=== PATIENT | male | born 1975 | race Caucasian/White ===

== ENCOUNTER 2022-04-27 13:29 | Emergency (ER) | payer OTHER, SELFPAY ==
[2022-04-27 13:52] VITALS: BP 121/73; PULSE 86; RESP 16; TEMP 36.4; O2SAT 97; BMI 29.8
--- NOTE | 2022-04-27 14:21 | ED_ITS ---
HPI - General Adult General Time Seen by Provider: 14:21 Date Seen: 04/27/22 Chief complaint: Flank Pain Stated complaint: Pain on left side Time Seen by Provider: 04/27/22 14:11 Source: patient and RN notes reviewed Mode of arrival: ambulatory Limitations: no limitations History of Present Illness HPI narrative: Patient is a 46-year-old male with left lateral sided abdominal pain that just started insidiously on the 8th. He can not say that there was anything that precipitated this. It has been there constantly, maybe worsening. He thinks that eating may make it worse. His appetite maybe decreased due to that. There has been no nausea or vomiting, no change in bowel habits, no diarrhea or constipation, no urinary symptoms. He certainly has not had any fever with it. He does state he has been diagnosed with Crohn's before. He believes he had a colonoscopy maybe in 2002. He has never had any kidney stones. Some movement and coughing will increase the pain. When he 1st noticed it it seemed to be more bandlike through his mid abdomen and has now localized in the left side. He does not believe he needs anything for pain at this time, is just interested in figuring this out. Tried Aleve once and it really did not change pain. Related Data Home Medications Medication Instructions Recorded Confirmed amlodipine 10 mg tablet 20 mg 04/27/22 lisinopril 10 mg tablet 10 mg 04/27/22 mesalamine 500 mg capsule,extended 500 mg PO BID 04/27/22 04/27/22 release (Pentasa) metformin 500 mg tablet,extended 2,000 mg PO 04/27/22 release 24 hr Allergies Allergy/AdvReac Type Severity Reaction Status Date / Time No Known Drug Allergies Allergy Verified 04/27/22 15:28 Review of Systems Status of ROS: Reports: 10 or more systems reviewed and unremarkable except as noted in History and below [facility] Medical History (Updated 04/27/22 @ 16:25 by Екатерина Dinero MD) Crohn's disease Diabetes mellitus Social History Smoking Status: Never smoker How often do you have a drink containing alcohol: never AUDIT-C Alcohol total score: 0 Non-prescribed substance use: denies use Exam Const: Vital Signs, click to edit/add: Vital Signs - 24 hr 04/27/22 13:52 Temperature 97.6 F Pulse Rate [Right Pulse Oximeter] 86 Respiratory Rate 16 Blood Pressure [Ri ght Upper Arm] 121/73 Pulse Oximetry 97 Oxygen Delivery Me thod Room Air Documenting provider has reviewed patient's vital signs: yes Common normals: no apparent distress, average body habitus, oriented x3, no limitations, healthy appearing and alert General appearance: cooperative, comfortable and well kempt Nutritional appearance: overweight HENMT: Common normals: normocephalic, head/scalp atraumatic, hearing grossly normal bilaterally, external ears normal, external nose normal, nasal mucous membranes and turbinates normal, moist oral mucous membranes, oropharynx normal, dentition normal and gingiva normal Head and scalp: normocephalic and atraumatic Nose: external nose normal and nasal mucous membranes and turbinates normal External ear: external ears normal Eye: Common normals: PERRL, EOMs intact bilaterally, conjunctivae normal and no scleral icterus Conjunctiva: conjunctiva(e) normal Pupil: PERRL Neck & C-Spine: Common normals: full ROM, no lymphadenopathy, supple, no meningeal signs, no JVD and thyroid normal Thyroid: thyroid normal Resp: Common normals: normal respiratory effort, no retractions, no use of accessory muscles and clear to auscultation bilaterally Auscultation: clear to auscultation bilaterally Cardio: Common normals: no JVD, regular rate, regular rhythm, S1 normal heart sound, S2 normal heart sound, no gallops, no clicks and no murmurs Rate: regular rate Rhythm: regular rhythm Heart sounds: S1 normal and S2 normal GI: Common normals: Normal to inspection, nondistended, normoactive bowel sounds present, soft to palpation (Mild tenderness mid left abdomen, left CVA, in the left lower quadrant ), no hepatosplenomegaly and no masses Palpation: soft (Mild tenderness mid left abdomen, left CVA, in the left lower quadrant ) and no hepatosplenomegaly Other: No true rebound or guarding noted. Neuro: Common normals: oriented x3 Sensorium/orientation: alert Meningeal signs: no meningeal signs Psych: Appearance: well kempt Course Course Hospital Course: Again, patient declines any pain management. We will place an IV and obtain abdomen pelvis CT with IV contrast. Will get appropriate lab work. Differential could be colitis including Crohn's activation although he is not munoz ving any stool changes. Could be diverticulitis, urinary system issues. Will obtain the labs and the CT to look at acute intra-abdominal pathology. Am doubtful that this is musculoskeletal for this patient but certainly is in the differential. Reevaluation(s) Reevaluation #1: Reviewed CT findings with patient and his whom is now present. He states he really does not feel that constipation is likely, but did suggest trying some MiraLax in cleaning the bowels out to see if that may help. He does have a history of Crohn's and do recommend that he have consideration of colonoscopy if he has ongoing symptoms. He sees Dr. Moore whom can arrange this for him. He wanted to know if the metformin might have possibly cause some issues, I reviewed with him that metformin typically would give diarrhea if anything. This time I think he is stable to work this up outpatient. We discussed signs and symptoms for return. Time: 16:20 Vital Signs Vital signs: Initial Vital Signs Temperature 97.6 F 04/27/22 13:52 Temperature Source Temporal Artery Scan 04/27/22 13:52 Pulse Rate 86 04/27/22 13:52 Pulse Rhythm 04/27/22 13:52 Respiratory Rate 16 04/27/22 13:52 Blood Pressure 121/73 04/27/22 13:52 Blood Pressure Mean 89 04/27/22 13:52 Pulse Oximetry 97 04/27/22 13:52 Oxygen Delivery Method 04/27/22 13:52 Vital Signs Temperature 97.6 F 04/27/22 13:52 Pulse Rate 86 04/27/22 13:52 Respiratory Rate 16 04/27/22 13:52 Blood Pressure 121/73 04/27/22 13:52 Pulse Oximetry 97 04/27/22 13:52 Oxygen Delivery Method 04/27/22 13:52 Temperature 97.6 F 04/27/22 13:52 Pulse Rate 86 04/27/22 13:52 Respiratory Rate 16 04/27/22 13:52 Blood Pressure 121/73 04/27/22 13:52 Pulse Oximetry 97 04/27/22 13:52 Oxygen Delivery Method 04/27/22 13:52 Medical Decision Making Lab Data Lab results reviewed: Yes I reviewed the patient's lab results Labs: Lab Results 04/27/22 04/27/22 04/27/22 Range/Units 14:40 14:40 14:40 WBC 12.41 H (4.50-11.00) K/uL RBC 5.34 (4.30-5.90) m/uL Hgb 15.4 (13.5-17.5) gm/dL Hct 46.2 (37.0-53.0) % MCV 87 (80-100) fL MCH 29 (26-34) pg MCHC 33 (32-36) gm/dL RDW Coeff of Nikki 13.0 (11.5-15.5) % Plt Count 300 (140-440) K/uL Neut % (Auto) 59.5 (42.0-72.0) % Lymph % (Auto) 30.9 (20-44) % [place] % (Auto) 7.6 (0.0-11.0) % Eos % (Auto) 1.5 (0.0-7.0) % Baso % (Auto) 0.3 (0.0-3.0) % Neut # (Auto) 7.40 H (1.7-7.0) K/uL Lymph # (Auto) 3.80 H (0.90-2.90) K/uL [place] # (Auto) 0.90 (0.00-0.90) K/UL Eos # (Auto) 0.20 (0.00-0.50) K/uL Baso # (Auto) 0.00 (0.00-0.30) K/uL Abs Immat Gran (auto) 0.03 (0.00-0.30) K/uL Sodium 138 (135-149) mmol/L Potassium 4.1 (3.6-5.1) mmol/L Chloride 102 (96-114) mmol/L Carbon Dioxide 27 (20-32) mmol/L BUN 13 (5-24) mg/dL Creatinine 0.6 (0.5-1.5) mg/dL Estimated Creat Clear 146.89 Estimated GFR 122 ml/min Glucose 104 (60-115) mg/dL Lactate 0.9 (0.5-1.9) mmol/L Calcium 9.2 (8.4-10.6) mg/dL Total Bilirubin 1.0 (0.1-1.5) mg/dL AST 38 H (12-35) U/L ALT 61 H (4-50) U/L Alkaline Phosphatase 197 H (40-150) U/L C-Reactive Protein 1.6 H (0.5-1.0) mg/dL Total Protein 8.8 H (6.0-8.3) g/dL Albumin 4.9 (3.3-5.0) g/dL Urine Color (Yellow) Urine Appearance (Clear) Urine pH (5.0-8.5) Ur Specific Means (1.000-1.030) Urine Protein (Negative) Urine Glucose (UA) (Negative) Urine Ketones (Negative) Urine Blood (Negative) Urine Nitrite (Negative) Urine Bilirubin (Negative) Urine Urobilinogen (0.2-1.0) Ur Leukocyte Esterase (Negative) Urine RBC (0-2) Urine WBC (0-5) Ur Squamous Epith Cells (None-Few) Urine Bacteria (None) 04/27/22 Range/Units 14:47 WBC (4.50-11.00) K/uL RBC (4.30-5.90) m/uL Hgb (13.5-17.5) gm/dL Hct (37.0-53.0) % MCV (80-100) fL MCH (26-34) pg MCHC (32-36) gm/dL RDW Coeff of Nikki (11.5-15.5) % Plt Count (140-440) K/uL Neut % (Auto) (42.0-72.0) % Lymph % (Auto) (20-44) % [place] % (Auto) (0.0-11.0) % Eos % (Auto) (0.0-7.0) % Baso % (Auto) (0.0-3.0) % Neut # (Auto) (1.7-7.0) K/uL Lymph # (Auto) (0.90-2.90) K/uL [place] # (Auto) (0.00-0.90) K/UL Eos # (Auto) (0.00-0.50) K/uL Baso # (Auto) (0.00-0.30) K/uL Abs Immat Gran (auto) (0.00-0.30) K/uL Sodium (135-149) mmol/L Potassium (3.6-5.1) mmol/L Chloride (96-114) mmol/L Carbon Dioxide (20-32) mmol/L BUN (5-24) mg/dL Creatinine (0.5-1.5) mg/dL Estimated Creat Clear Estimated GFR ml/min Glucose (60-115) mg/dL Lactate (0.5-1.9) mmol/L Calcium (8.4-10.6) mg/dL Total Bilirubin (0.1-1.5) mg/dL AST (12-35) U/L ALT (4-50) U/L Alkaline Phosphatase (40-150) U/L C-Reactive Protein (0.5-1.0) mg/dL Total Protein (6.0-8.3) g/dL Albumin (3.3-5.0) g/dL Urine Color Yellow (Yellow) Urine Appearance Clear (Clear) Urine pH 6.0 (5.0-8.5) Ur Specific Means <= 1.005 (1.000-1.030) Urine Protein Negative (Negative) Urine Glucose (UA) Negative (Negative) Urine Ketones Negative (Negative) Urine Blood Negative (Negative) Urine Nitrite Negative (Negative) Urine Bilirubin Negative (Negative) Urine Urobilinogen 0.2 (0.2-1.0) Ur Leukocyte Esterase Negative (Negative) Urine RBC 0-2 (0-2) Urine WBC 0-2 (0-5) Ur Squamous Epith Cells Few (None-Few) Urine Bacteria None (None) Imaging Data CT scan - abdomen: Attestation: I have reviewed the pertinent imaging results. Radiologist's impression: Patient: DINORA MEJIA Facility:?[facility] Patient ID:?[id number] Site Patient ID:?[id number]. Site :?[id number] Study:?CT Abdomen/Pelvis W/ 93CC [id number]/11/2022 3:35:29 PM Ordering Physician:Vera Willams Final Report: INDICATION: Left-sided abdominal pain TECHNIQUE: CT abdomen and pelvis acquired with IV contrast. 3 cc Isovue 370 COMPARISON: None FINDINGS: Lower chest: Unremarkable. Liver: Innumerable hepatic cysts. Spleen: Unremarkable. Pancreas: Unremarkable. Gallbladder and bile ducts: Unremarkable. Kidneys: Unremarkable. Adrenal glands: Unremarkable. Index is normal. Unremarkable. Appendix is normal. Vascular structures: Unremarkable. Lymph nodes: Unremarkable. Miscellaneous: Unremarkable. No free air or significant free fluid. Pelvic Organs: Mild diffuse urinary bladder wall thickening. Mild prostatomegaly Bones: Unremarkable for age. IMPRESSION: Diffuse colonic fecal retention. Mild prostatomegaly with mild diffuse urinary bladder wall thickening. Innumerable hepatic cysts. Dictated by William Santizo MD @ 04/27/2022 4:02:38 PM Please note that all CT scans at this facility use dose modulation, iterative reconstruction, and/or weight-based dosing when appropriate to reduce radiation dose to as low as reasonably achievable. Dictated by: William Santizo MD @ 04/27/2022 16:03:08 (Electronic Signature) Critical Care Time Critical Care Time Critical Care Time: No Discharge Plan Discharge Clinical Impression: History of Crohn's disease, Left sided abdominal pain Condition: Stable Instructions: Abdominal Pain (ED) Additional Instructions: Recommend trying some MiraLax per package instructions and see if clearing out the colon helps reduce the pain. Otherwise, do recommend contacting Dr. Moore's office for follow-up and discussion of having colonoscopy scheduled. Should you develop severe abdominal pain associated with any vomiting or fever, do need to seek re-evaluation in the ER. Activity Level: Activity as Tolerated Prescriptions: No Action amlodipine 10 mg tablet 20 mg Label Comments: TAKE ONE TABLET BY MOUTH ONE TIME DAILY lisinopril 10 mg tablet 10 mg Label Comments: Take 1 Tablet (10 mg) by mouth once daily. mesalamine [Pentasa] 500 mg capsule, extended release 500 mg PO BID metformin 500 mg tablet extended release 24 hr 2,000 mg PO Label Comments: Take 4 Tablets (2,000 mg) by mouth once daily. Follow Up/Referrals: Juaquin Adams MD [Primary Care Provider] - Stand Alone Forms: [employer] Info Instructions
--- NOTE | 2022-04-27 14:28 | CRLHL7_ITS ---
For Patients: As a result of the Century Cures Act, medical imaging exams and procedure reports are released immediately into your electronic medical record. You may view this report before your referring provider. If you have questions, please contact your health care provider. INDICATION: Left-sided abdominal pain TECHNIQUE: CT abdomen and pelvis acquired with IV contrast. 3 cc Isovue 370 COMPARISON: None FINDINGS: Lower chest: Unremarkable. Liver: Innumerable hepatic cysts. Spleen: Unremarkable. Pancreas: Unremarkable. Gallbladder and bile ducts: Unremarkable. Kidneys: Unremarkable. Adrenal glands: Unremarkable. Index is normal. Unremarkable. Appendix is normal. Vascular structures: Unremarkable. Lymph nodes: Unremarkable. Miscellaneous: Unremarkable. No free air or significant free fluid. Pelvic Organs: Mild diffuse urinary bladder wall thickening. Mild prostatomegaly Bones: Unremarkable for age. IMPRESSION: Diffuse colonic fecal retention. Mild prostatomegaly with mild diffuse urinary bladder wall thickening. Innumerable hepatic cysts. Dictated by William Santizo MD @ 04/27/2022 4:02:38 PM Please note that all CT scans at this facility use dose modulation, iterative reconstruction, and/or weight-based dosing when appropriate to reduce radiation dose to as low as reasonably achievable. Dictated by: William Santizo MD @ 04/27/2022 16:03:08 (Electronically Signed)
[2022-04-27 14:51] LABS: Lactate* 0.9 mmol/L (0.5-1.9)
[2022-04-27 14:52] LABS: Basophils Percent Auto 0.3 % (0.0-3.0); Eosinophils Percent Auto 1.5 % (0.0-7.0); Hematocrit 46.2 % (37.0-53.0); Hemoglobin* 15.4 gm/dL (13.5-17.5); Immature Granulocytes Abs Auto 0.03 K/uL (0.00-0.30); Lymphocytes Percent Auto 30.9 % (20-44); Mean Corpuscular HGB Conc 33 gm/dL (32-36); Mean Corpuscular Hemoglobin 29 pg (26-34); Mean Corpuscular Volume 87 fL (80-100); Monocytes Percent Auto 7.6 % (0.0-11.0); Neutrophils Percent Auto 59.5 % (42.0-72.0); Platelet Count* 300 K/uL (140-440); Red Blood Count 5.34 m/uL (4.30-5.90); White Blood Count* 12.41 K/uL (4.50-11.00)
[2022-04-27 14:53] LABS: Appearance Urine Clear (Clear); Bilirubin Urine Negative (Negative); Blood Urine Negative (Negative); Color Urine Yellow (Yellow); Glucose Urine Negative (Negative); Ketones Urine Negative (Negative); Leukocyte Esterase Urine Negative (Negative); Nitrite Urine Negative (Negative); Protein Urine Negative (Negative); Specific Gravity Urine <= 1.005 (1.000-1.030); Urobilinogen Urine 0.2 (0.2-1.0)
[2022-04-27 14:56] LABS: Slide Review Reflex No
[2022-04-27 15:04] LABS: RBC Urine 0-2 (0-2); Squamous Epithelial Cell Urine Few (None-Few); WBC Urine 0-2 (0-5)
[2022-04-27 15:09] LABS: Albumin* 4.9 g/dL (3.3-5.0); Chloride* 102 mmol/L (96-114)
[2022-04-27 15:10] LABS: Potassium* 4.1 mmol/L (3.6-5.1); Sodium* 138 mmol/L (135-149)
[2022-04-27 15:12] LABS: Alkaline Phosphatase* 197 U/L (40-150); Aspartate Amino Transferase* 38 U/L (12-35); Carbon Dioxide* 27 mmol/L (20-32); Creatinine* 0.6 mg/dL (0.5-1.5); Est. Creatinine Clearance* 146.89; Estimated Glomerular Filt Rate 122 ml/min; Total Protein* 8.8 g/dL (6.0-8.3)
[2022-04-27 15:13] LABS: Alanine Aminotransferase* 61 U/L (4-50); Blood Urea Nitrogen* 13 mg/dL (5-24); Calcium* 9.2 mg/dL (8.4-10.6); Glucose* 104 mg/dL (60-115)
[2022-04-27 15:15] LABS: C Reactive Protein* 1.6 mg/dL (0.5-1.0)
[2022-04-27 17:13] VITALS: BP 121/73; PULSE 86; RESP 16; TEMP 36.4
== END 2022-04-27 17:14 | disposition home or self-care (01) ==
PROVIDERS: Emergency Provider Family Medicine; PCP Family Medicine
DX: R10.9 Unspecified abdominal pain (principal)
CPT/HCPCS: 36415; 74177; 80053; 81001; 83605; 85025; 86140; 99284; Q9967

== ENCOUNTER 2024-02-25 16:32 | Emergency (ER) | payer OTHER, SELFPAY ==
[2024-02-25 16:37] VITALS: BP 138/79; PULSE 87; RESP 18; TEMP 36.6; O2SAT 95; BMI 31.3
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
--- NOTE | 2024-02-25 18:00 | CRLHL7_ITS ---
For Patients: As a result of the Cures Act, medical imaging exams and procedure reports are released immediately into your electronic medical record. You may view this report before your referring provider. If you have questions, please contact your health care provider. INDICATION: Chest pain. TECHNIQUE: Chest radiograph, 1 view. COMPARISON: None. FINDINGS: Cardiovascular/Mediastinum: Normal heart size. Unremarkable. Lungs: No focal consolidation. Airways: Trachea remains midline. Pleura: No pleural effusions or pneumothorax. Bones: No acute osseous abnormalities. Upper abdomen: Unremarkable. IMPRESSION: No acute cardiopulmonary process. Dictated by Jurgen Weber MD @ 02/25/2024 8:23:21 PM (Electronically Signed)
[2024-02-25 18:27] LABS: Basophils Absolute Auto 0.06 K/uL (0.00-0.30); Basophils Percent Auto 0.6 % (0.0-3.0); Eosinophils Absolute Auto 0.24 K/uL (0.00-0.50); Eosinophils Percent Auto 2.5 % (0.0-7.0); Hematocrit 40.4 % (37.0-53.0); Immature Granulocytes Abs Auto 0.03 K/uL (0.00-0.30); Immature Granulocytes Pct Auto 0.3 %; Lymphocytes Absolute Auto 3.62 K/uL (0.90-2.90); Lymphocytes Percent Auto 38.1 % (20-44); Mean Corpuscular HGB Conc 32 gm/dL (32-36); Mean Corpuscular Hemoglobin 25 pg (26-34); Mean Corpuscular Volume 79 fL (80-100); Monocytes Percent Auto 8.9 % (0.0-11.0); Neutrophils Absolute Auto 4.71 K/uL (1.7-7.0); Neutrophils Percent Auto 49.6 % (42.0-72.0); Platelet Count* 338 K/uL (140-440); RDW Coefficient of Variation % 16.1 % (11.5-15.5); Red Blood Count 5.12 m/uL (4.30-5.90); White Blood Count* 9.51 K/uL (4.50-11.00)
[2024-02-25 18:29] LABS: Slide Review Reflex No
[2024-02-25 18:42] LABS: Albumin* 5.1 g/dL (3.3-5.0); Chloride* 105 mmol/L (96-114)
[2024-02-25 18:43] LABS: Potassium* 4.1 mmol/L (3.6-5.1); Sodium* 138 mmol/L (135-149)
[2024-02-25 18:45] LABS: Bilirubin Total* 1.1 mg/dL (0.1-1.5); Creatinine* 0.7 mg/dL (0.5-1.5); Est. Creatinine Clearance* 123.28; Estimated Glomerular Filt Rate 115 ml/min
[2024-02-25 18:46] LABS: Alanine Aminotransferase* 80 U/L (4-50); Alkaline Phosphatase* 146 U/L (40-150); Anion Gap 7 mEq/L (7-15); Aspartate Amino Transferase* 42 U/L (12-35); Blood Urea Nitrogen* 11 mg/dL (5-24); Carbon Dioxide* 26 mmol/L (20-32); Glucose* 116 mg/dL (60-115); Total Protein* 8.3 g/dL (6.0-8.3)
[2024-02-25 18:47] LABS: Calcium* 9.2 mg/dL (8.4-10.6); Magnesium* 2.3 mg/dL (1.5-2.6)
[2024-02-25 18:48] LABS: D Dimer Quantitative* 0.36 ug/ml (0.00-0.50)
[2024-02-25 18:49] LABS: C Reactive Protein* 0.7 mg/dL (0.5-1.0)
[2024-02-25 18:54] VITALS: BP 134/85; PULSE 82; RESP 18; O2SAT 94
[2024-02-25 18:58] LABS: NT Pro B Type NatriureticPept* < 20 pg/mL
[2024-02-25] MEDS: KETOROLAC 15 MG/ML inj IVP (19:40)
--- NOTE | 2024-02-25 19:43 | ED.NURSE ---
Ketorolac 15mg given IM instead of IVP, aware.
== END 2024-02-25 21:11 | disposition home or self-care (01) ==
PROVIDERS: Emergency Provider Family Medicine; PCP Family Medicine
DX: R07.89 Other chest pain (principal)
CPT/HCPCS: 36415; 71045; 80053; 83735; 83880; 84484; 85025; 85379; 86140; 93005; 96374; 99284; 99285; J1885

== ENCOUNTER 2024-06-20 09:37 | Outpatient (CLI) | payer OTHER, SELFPAY ==
--- NOTE | 2024-06-20 11:22 | W.ANESCHARGE ---
Anesthesia Charges Start Date/Time Anesthesia Start Date: 06/20/24 Anesthesia Start Time: 11:02 Stop Date/Time Anesthesia Stop Date: 06/20/24 Anesthesia Stop Time: 11:31
--- NOTE | 2024-06-20 11:35 | W.ANESCHARGE ---
Anesthesia Charges Start Date/Time Anesthesia Start Date: 06/20/24 Anesthesia Start Time: 11:02 Stop Date/Time Anesthesia Stop Date: 06/20/24 Anesthesia Stop Time: 11:31
== END 2024-06-20 09:38 | disposition home or self-care (01) ==
LOC: OP CLINIC 09:37
PROVIDERS: PCP Family Medicine; Visit Provider Internal Medicine Gastroenterology
DX: Z12.11 Encounter for screening for malignant neoplasm of colon (principal); K50.00 Crohn's disease of small intestine without complications; D12.5 Benign neoplasm of sigmoid colon
CPT/HCPCS: 00811; 45385; 88305; J2704

== ENCOUNTER 2025-05-09 21:00 | Emergency (ER) | payer OTHER, SELFPAY ==
--- OUTSIDE RECORDS SUMMARY | 2025-05-09 21:02 | XMS_ITS | Clinical Summary ---
Author Organization [facility] Address [address] [place] [id number] Care Team Providers Care Channel Marketing Coordinator Name Role Phone Juaquin Adams MD Primary Care Provider + Allergies No known active allergies Medications metFORMIN (GLUCOPHAGE XR) 500 mg Extended-Releas e tabletIndicatio ns:Type 2 diabetes mellitus without complication, with long-term current use of insulin (HC) Take 4 Tablets (2,000 mg) by mouth once daily. 360 Tablet 3 5 Active amLODIPine (NORVASC) 10 mg tabletIndicatio ns:Hypertension , unspecified type Take 1 Tablet (10 mg) by mouth once daily. 90 Tablet 3 5 Active lisinopriL (PRINIVIL; ZESTRIL) 10 mg tabletIndicatio ns:HTN (hypertension) Take 1 Tablet (10 mg) by mouth once daily. 90 Tablet 3 5 Active omeprazole (PRILOSEC) 20 mg Delayed-Release capsuleIndicati ons:Gastroesoph ageal reflux disease, unspecified whether esophagitis present Take 1 Capsule (20 mg) by mouth once daily before a meal. 90 Capsule 3 5 Active blood sugar diagnostic (OneTouch Verio test strips) stripIndication s:Type 2 diabetes mellitus without complication, with long-term current use of insulin (HC) Dispense item covered by pt ins. E11.65 NIDDM type II, uncontrolled - Test 2 times/day. Reason: High A1C 200 Each 3 5 Active methylPREDNISol one (Medrol, Carlos A,) 4 mg tabletIndicatio ns:Uvulitis Take by mouth as instructed per packaging. 21 Tablet Active Active Problems Problem Noted Date Diagnosed Date Colon polyp 06/24/2024 Overview (06/24/2024): Colonoscopy 06/2024 TA, repeat in 7 years Type 2 diabetes mellitus wit hout complication, without long-term current use of insulin 01/10/2022 Hypertension 07/08/2018 Gout 08/29/2017 Fatty liver 11/25/2012 Nonspecific elevation of lev els of transaminase or lactic acid dehydrogenase (LDH) 01/29/2008 Crohn's disease of small intestine without compl ication 02/06/2007 Encounters Date Type Department Care Team Description 05/07/2025 Refill [facility] [address] [place] [address] Juaquin Adams MD Refill Request (Onetouch Delica Plus Lancet) from Last 3 Months Immunizations Immunization Administration Dates Next Due HepA-HepB (Twinrix) 08/15/2004,03/16/2004,2003 Tdap 12/22/2011 Family History Medical History Relation Name Comments Heart Disease Father Heart Disease Mother Anesthesia Problem Other none Relation Name Status Comments Father Mother Other Social History Tobacco Use Types Packs/Day Years Used Date Smoking Tobacco: Never Smokeless Tobacco: Never Tobacco Cessation:Counseling Given: Yes Alcohol Use Standard Drinks/Week Comments No 0 (1 standard drink = 0.6 oz pur e alcohol) PHQ-2 Answer Date Recorded PHQ-2 TOTAL SCORE 0 02/28/2024 Social Connections Answer Date Recorded Do you often feel lonely or isolated from those around you? 0 06/10/2024 Financial Resource Strain Answer Date R ecorded Difficulty of Paying Living Expenses 3 02/28/2024 Difficulty of Paying Living Expenses Not on file 02/28/2024 Food Insecurity Answer Date Recorded Do you worry your food will run out before you are able to buy more? 1 06/10/2024 Transportation Needs Answer Date Record ed Does lack of transportation keep you from medica l appointments? 1 06/10/2024 Does lack of transportation keep you from work, meetings or getting things that you need? 1 06/10/2024 Housing Stability Answer Date Recorded What is your housing situation today? 1 06/10/2024 Utilities Answer Date Recorded Do you have trouble paying f or utilities (for example, heat, electricity, water, phone)? 1 06/10/2024 Sex and Gender Information Value Date Recorded Sex Assigned at Not on file Legal Sex Male 5:25 AM [employer] Gender Identity Not on file Sexual Orientation Not on file Obstetrics History Last Filed Vital Signs Vital Sign Reading Time Taken Comments Blood Pressure 162/83 11/12/2024 1:14 PM [employer] Pulse 92 11/12/2024 1:14 PM [employer] Temperature 36.5 C (97.7 F) 11/12/2024 1:14 PM [employer] Respiratory Rate - - Oxygen Saturation 99% 11/12/2024 1:14 PM [employer] Inhaled Oxygen Concentration - - Weight 93.8 kg (206 lb 12.8 oz) 11/12/2024 1:14 PM [employer] Height 170.2 cm (5' 7) 11/12/2024 1:14 PM [employer] Body Mass Index 32.39 11/12/2024 1:14 PM [employer] Plan of Treatment Health Maintenance Due Date Last Done Comments HIV for age 15-65 1992 Pneumococcal series for age 6-49 (1 of 2 - PCV) 1996 Tetanus booster 12/21/2021 12/22/2011 COVID-19 vaccine series ( - season) 2024 Depression screening for age 12+ 02/27/2025 02/28/2024, 02/28/2024, 03/13/2023, Additional history exists Influenza Vaccine (#1) 2025 BMI (ht and wt on same day) for age 18+ 11/12/2025 11/12/2024, 10/23/2024, 06/10/2024, Additional history exists Lipids for age 45-75 10/23/2029 10/23/2024, 09/03/2023, 03/13/2023, Additional history exists Colonoscopy through age 75 06/20/2031 06/20/2024, Hepatitis C screening for ag e 18-79 Completed 07/08/2003 Hepatitis B series for 19+ Completed 08/15, 03/16/2004, 02/12/2004 Procedures Procedure Name Priority Date/Time Associated Diagnosis Comments LIPID PANEL W REFLEX MEASURED LDL Routine 10/23/2024 4:05 PM [employer] Type 2 diabetes mellitus without complication, without long-term current use of insulin (HC) COLONOSCOPY SCREENING Routine 06/20/2024 12:00 AM CDT Screening for colon cancer ANTI HCV Routine 07/08/2003 2:41 PM CDT from Last 3 Months or Most Recently Relevant to Health Maintenance Results * (ABNORMAL) LIPID PANEL W REFLEX MEASURED LDL (10/23/2024 4:05 PM [employer]) CHOLESTEROL, TOTAL 214(H) <200 mg/dL [facility] HDL CHOLESTEROL 44 > OR = 40 mg/dL [facility] TRIGLYCERIDES 173(H) <150 mg/dL [facility] LDL-CHOLESTEROL 139(H) mg/dL (calc) [facility] Comment: Reference range: <100 Desirable range <100 mg/dL for primary prevention; <70 mg/dL for patients with CHD or diabetic patients with > or = 2 CHD risk factors. LDL-C is now calculated using the Taj-Underwood calculation, which is a validated novel method providing better accuracy than the Friedewald equation in the estimation of LDL-C. Taj SS et al. CONCEPCION. 2013;310(19): 5119-9529 (http://education.[employer]/faq/PDG173) CHOL/HDLC RATIO 4.9 <5.0 (calc) [facility] NON HDL CHOLESTEROL 170(H) <130 mg/dL (calc) [facility] Comment: For patients with diabetes plus 1 major ASCVD risk factor, treating to a non-HDL-C goal of <100 mg/dL (LDL-C of <70 mg/dL) is considered a therapeutic option. Blood BLOOD SPECIMEN / Unknown 10/23/2024 4:05 PM [employer] 10/23/2024 4:05 PM [employer] us Juaquin Adams MD CHEMISTRY Final Re sult [facility] [address] [place] [address], [facility] [address] [place] [address] * COLONOSCOPY SCREENING (06/20/2024 12:00 AM CDT) Juaquin Adams MD GI PROCEDURE ORD Final R esult * ANTI HCV (07/08/2003 2:41 PM CDT) ANTI HCV Non-reactiv e 07/08/2003 2:41 PM CDT Narrative 02/25/2004 3:05 AM CDT Ordered by an unspecified provider. Other Clinical Staff SEND OUTS Final Resul t from Last 3 Months or Most Recently Relevant to Health Maintenance Insurance [facility] Care Teams Channel Marketing Coordinator Relationship Specialty Start Date End Date Votel, Juaquin Polanco MD [address] [place] [address] PCP - General Family Practice 07/26/15
--- NOTE | 2025-05-09 21:03 | CRLHL7_ITS ---
For Patients: As a result of the Century Cures Act, medical imaging exams and procedure reports are released immediately into your electronic medical record. You may view this report before your referring provider. If you have questions, please contact your health care provider. Indication: Fall, right foot injury, swelling. Technique: Right foot 3 views. Comparison: None. Findings: Bones: Alignment is normal. Acute nondisplaced transversely oriented fracture of the 5th metatarsal base at the level of the proximal intermetatarsal articulation. Small plantar and Achilles calcaneal enthesophytes. Joint spaces: Unremarkable. Soft tissues: Soft tissue swelling overlying the 5th metatarsal base. Impression: Acute nondisplaced fracture of the 5th metatarsal base. Dictated by Rene Martinez MD @ 05/09/2025 9:35:52 PM (Electronically Signed)
[2025-05-09 21:04] VITALS: BP 171/86; PULSE 91; RESP 18; TEMP 36.7; O2SAT 99; BMI 31.3
--- NOTE | 2025-05-09 21:14 | ED.GENADULT ---
HPI - General Adult General Chief complaint: Extremity Pain/Injury, Lower Stated complaint: R foot injury Time Seen by Provider: 05/09/25 21:14 History of Present Illness HPI narrative: CC: Right Foot Pain/Injury pt. rolled right foot laterally around 1999. took 800mg advil around 2014. able to bear some weight. 49-year-old man presenting to the emergency department having injured his right foot. Was watering his potts and stepped on a curb of some sort inverting his right foot. Has been able to bear little weight. No other injuries were noted. Pain is in the mid lateral right foot. Does have a history of 5th metatarsal fracture with difficulty healing/delayed of the base of the 5th metatarsal of the left foot Related Data Home Medications ?Medication ?Instructions ?Recorded ?Confirmed amlodipine 10 mg tablet 20 mg PO DAILY 04/27/22 05/12/25 lisinopril 10 mg tablet 10 mg PO DAILY 04/27/22 05/12/25 metformin 500 mg tablet,extended 2,000 mg PO DAILY 04/27/22 05/12/25 release 24 hr omeprazole 20 mg capsule,delayed 20 mg PO QDAY 11/10/24 05/12/25 release Previous Rx's ?Medication ?Instructions ?Recorded Knee Scooter- Adult #1 ea 05/12/25 Allergies Allergy/AdvReac Type Severity Reaction Status Date / Time No Known Drug Allergies Allergy Verified 05/12/25 10:56 Review of Systems Status of ROS: Reports: 6 or more systems reviewed and unremarkable except as noted in History and below [facility] Medical History Diabetes mellitus ?E11.9 - Type 2 diabetes mellitus without complications (ICD-10) Crohn's disease ?K50.90 - Crohn's disease, unspecified, without complications (ICD-10) Social History Smoking Status: Never smoker Do you use any of these nicotine containing products: None Second hand tobacco smoke exposure: No How often do you have a drink containing alcohol: never How often do you have six or more drinks on one occasion: Never AUDIT-C Alcohol total score: 0 Non-prescribed substance use: denies use Exam Narrative: Exam Narrative: Pleasant. NAD. On exam bed with feet up. Extremity in question the right shows clear moderate swelling tender to palpation over the base of the 5th metatarsal. Does not appear to have involved injury of the ankle. No pain to palpation about the malleoli. No plantar bruising of the foot. Const: Vital Signs, click to edit/add: Vital Signs - 24 hr 05/09/25 21:04 Temperature 98.0 F Pulse Rate [Left P ulse Oximeter] 91 Respiratory Rate 18 Blood Pressure [Ri ght Upper Arm] 171/86 H Pulse Oximetry 99 Oxygen Delivery Me thod Room Air Documenting provider has reviewed patient's vital signs: yes Course Vital Signs Vital signs: Initial Vital Signs Temperature 98.0 F 05/09/25 21:04 Temperature Source Temporal Artery Scan 05/09/25 21:04 Pulse Rate 91 05/09/25 21:04 Respiratory Rate 18 05/09/25 21:04 Blood Pressure 171/86 H 05/09/25 21:04 Blood Pressure Mean 114 H 05/09/25 21:04 Blood Pressure Position Sitting 05/09/25 21:04 Pulse Oximetry 99 05/09/25 21:04 Oxygen Delivery Method Room Air 05/09/25 21:04 Vital Signs Temperature 98.0 F 05/09/25 21:04 Pulse Rate 91 05/09/25 21:04 Respiratory Rate 18 05/09/25 21:04 Blood Pressure 171/86 H 05/09/25 21:04 Pulse Oximetry 99 05/09/25 21:04 Oxygen Delivery Method Room Air 05/09/25 21:04 Temperature 98.0 F 05/09/25 21:46 Pulse Rate 85 05/09/25 21:46 Respiratory Rate 18 05/09/25 21:46 Blood Pressure 165/81 H 05/09/25 21:46 Pulse Oximetry 99 05/09/25 21:43 Oxygen Delivery Method Room Air 05/09/25 21:43 Medical Decision Making MDM Narrative Medical decision making narrative: I would suspect base of 5th metatarsal fracture. X-rays requested. Does not feel he needs any ice or pain meds. Three-view x-ray of the right foot independently reviewed by me does show nondisplaced fracture transverse at the base of the 5th metatarsal. Radiology over-read below Indication: Fall, right foot injury, swelling. Technique: Right foot 3 views. Comparison: None. Findings: Bones: Alignment is normal. Acute nondisplaced transversely oriented fracture of the 5th metatarsal base at the level of the proximal intermetatarsal articulation. Small plantar and Achilles calcaneal enthesophytes. Joint spaces: Unremarkable. Soft tissues: Soft tissue swelling overlying the 5th metatarsal base. Impression: Acute nondisplaced fracture of the 5th metatarsal base. Dictated by Rene Martinez MD @ 05/09/2025 9:35:52 PM Anticipating placement of short walking boot. Did discuss this with Orthopedics for outpatient follow-up, further recommendations. Recommendations are to be nonweightbearing. He did present with 1 crutch. Apparently they have more at home. Placed in walking boot. See patient discharge plan for further discussion Ice your foot a couple of times daily over the next few days. Might be more comfortable at rest with an Pawan wrap on as well? We can provide you with these and they work well to apply ice bags. Elevate for comfort. Ibuprofen, acetaminophen. Wear this cam/walking boot when up and about. Recommendations are to nonweightbearing until follow-up with Orthopedics. Anticipate receiving a call from them on Sunday to schedule. If you do not hear from them by noon go ahead and call [phone] Discharge Plan Discharge Clinical Impression: Fracture of base of fifth metatarsal bone of right foot Patient Disposition: Home w/ Parent or Adult Condition: Stable Additional Instructions: Ice your foot a couple of times daily over the next few days. Might be more comfortable at rest with an Pawan wrap on as well? We can provide you with these and they work well to apply ice bags. Elevate for comfort. Ibuprofen, acetaminophen. Wear this cam/walking boot when up and about. Recommendations are to nonweightbearing until follow-up with Orthopedics. Anticipate receiving a call from them on Sunday to schedule. If you do not hear from them by noon go ahead and call [phone] Prescriptions: No Action omeprazole 20 mg capsule,delayed release(DR/EC) 20 mg PO QDAY (DME) Knee Scooter- Adult Misc See Rx Instructions .Route Qty: 1 0RF Rx Instructions: As directed. Use for 6 weeks. amlodipine 10 mg tablet 20 mg PO DAILY Patient Comments: TAKE ONE TABLET BY MOUTH ONE TIME DAILY lisinopril 10 mg tablet 10 mg PO DAILY Patient Comments: Take 1 Tablet (10 mg) by mouth once daily. metformin 500 mg tablet extended release 24 hr 2,000 mg PO DAILY Patient Comments: Take 4 Tablets (2,000 mg) by mouth once daily. Follow Up/Referrals: Juaquin Adams MD [Primary Care Provider, Family Practice] Stand Alone Forms: [employer] Info Instructions
[2025-05-09 21:43] VITALS: BP 165/81; PULSE 85; RESP 18; TEMP 36.7; O2SAT 99
[2025-05-09 21:46] VITALS: BP 165/81; PULSE 85; RESP 18; TEMP 36.7
== END 2025-05-09 21:46 | disposition home or self-care (01) ==
PROVIDERS: Emergency Provider Family Medicine; PCP Family Medicine
DX: S92.354A Nondisplaced fracture of fifth metatarsal bone, right foot, initial encounter for closed fracture (principal); X50.1XXA Overexertion from prolonged static or awkward postures, initial encounter
CPT/HCPCS: 73630; 99283; 99284